=== PATIENT | male | born 1950 | race Caucasian/White ===

== ENCOUNTER 2018-06-17 21:48 | Emergency (ER) | payer OTHER ==
[~2018-06-17] VITALS: Ht 165.1 cm; Wt 81.6 kg
[2018-06-17 22:11] VITALS: BP 184/101
--- NOTE | 2018-06-17 22:15 | NUR ---
TO BED # 11 AMBULATORY, REPORT GIVEN TO PHIL KNAPP
--- NOTE | 2018-06-17 22:20 | NUR ---
PT BIB FAMILY C/O HIGH BLOOD STARTED THIS MORNING. PT DENIES N/V/D; SKIN IS INTACT, FLUSHED/WARM/DRY; AAOX4, PERRL, WITH EVEN AND STEADY GAIT; LUNGS CLEAR BL, BREATHING UNLABORED; HR EVEN AND REGULAR, BL PERIPHERAL PULSES PRESENT; BS ACTIVE X4, NO TENDERNESS TO PALPATION. PT DENIES ANY FEVER, CP, SOB, OR COUGH AT THIS TIME; PT STATES 0/10 PAIN AT THIS TIME; VSS; PATIENT POSITIONED FOR COMFORT; HOB ELEVATED; BEDRAILS UP X2; BED DOWN.
--- NOTE | 2018-06-17 23:00 | NUR ---
IV 18GA LT A/C DONE. BLOOD SENT TO LAB.
--- NOTE | 2018-06-17 23:14 | NUR ---
Dr. Joyce evaluating patient at bedside.
[2018-06-17] MEDS ORDERED: cloNIDine 0.1 MG TAB PO ONE (23:55)
[2018-06-17] MEDS ORDERED: LISI-420 PO (23:59)
[2018-06-17] MEDS ORDERED: GLIP10TE PO (23:59)
[2018-06-17] MEDS ORDERED: SIMV40TA1 PO (23:59)
[2018-06-17] MEDS ORDERED: ATEN50TA8 PO (23:59)
[2018-06-17] MEDS ORDERED: NAPR-54 PO (23:59)
[2018-06-18] MEDS ORDERED: cloNIDine 0.1 MG TAB PO ONE (00:55)
--- NOTE | 2018-06-18 01:50 | NUR ---
Patient discharged with v/s stable. Written and verbal after care instructions given and explained. Patient alert, oriented and verbalized understanding of instructions. Ambulatory with steady gait. All questions addressed prior to discharge. ID band removed. Patient advised to follow up with PMD. Opportunity to ask questions provided and answered.
[2018-06-18 01:55] VITALS: BP 154/62
== END 2018-06-18 01:50 | disposition home or self-care (01) ==
LOC: MED 21:48
DX: I10 Essential (primary) hypertension (principal); H53.8 Other visual disturbances; E11.9 Type 2 diabetes mellitus without complications; Z79.899 Other long term (current) drug therapy
CPT/HCPCS: 82948; 99283

== ENCOUNTER 2018-08-28 17:52 | Inpatient (IN) | payer OTHER ==
[~2018-08-28] VITALS: Ht 160 cm; Wt 84.8 kg
[~2018-08-28 17:52] MED LIST: ATEN50TA8 PO; GLIP10TE PO; LISI-420 PO; NAPR-54 PO; SIMV40TA1 PO
[2018-08-28 17:57] VITALS: BP 170/90
[2018-08-28] MEDS ORDERED: ASPIRIN 325 MG TAB PO ONE (18:35)
[2018-08-28 18:42] LABS: BASOPHILS % (AUTO) 0.4 % (0.0-2.0); EOSINOPHILS % (AUTO) 0.3 % (0.0-4.0); HEMATOCRIT 50.9 % (36-52); HEMOGLOBIN 16.7 g/dL (12.0-18.0); LYMPHOCYTES # (AUTO) 1.7 K/uL (2.0-11.5); MEAN CORPUSCULAR HEMOGLOBIN 29 pg (27-31); MEAN CORPUSCULAR HGB CONC 33 g/dL (33-37); MEAN CORPUSCULAR VOLUME 87.3 fL (80-94); MONOCYTES # (AUTO) 0.8 K/uL (0.8-1.0); NEUTROPHILS # (AUTO) 8.2 K/uL (1.8-7.7); NEUTROPHILS % (AUTO) 76.3 % (42.2-75.2); PLATELET COUNT (AUTO) 247 K/uL (140-450); RED BLOOD CELL COUNT(AUTO) 5.83 MIL/uL (4.20-6.10); RED CELL DISTRIBUTION WIDTH 17.5 % (11.6-13.7); WHITE BLOOD COUNT (AUTO) 10.8 K/uL (4.8-10.8)
[2018-08-28 18:45] LABS: APPEARANCE,URINE CLEAR (CLEAR); COLOR,URINE YELLOW (YELLOW); UGLUCOSE NEGATIVE (NEGATIVE)
[2018-08-28 18:46] LABS: BILIRUBIN,URINE NEGATIVE (NEGATIVE); BLOOD, URINE NEGATIVE (NEGATIVE); LEUKOCYTE ESTERASE ,URINE NEGATIVE (NEGATIVE); NITRITE, URINE NEGATIVE (NEGATIVE)
[2018-08-28 18:52] LABS: ANION GAP 15.9 (8-16); CARBON DIOXIDE 27.5 mmol/L (21-32); CREATININE 1.6 mg/dL (0.7-1.3); POTASSIUM 4.4 mmol/L (3.5-5.1)
[2018-08-28 18:58] LABS: ALBUMIN 4.2 g/dL (3.4-5.0); TOTAL BILIRUBIN 0.4 mg/dL (0.0-1.0)
[2018-08-28] MEDS ORDERED: NITROGLYCERIN 2% 1 GM PKT TP ONE (20:20)
[2018-08-28] MEDS ORDERED: NACL 0.9% 500 ML IV ONE (20:20)
[2018-08-28] MEDS ORDERED: METO50TA21 PO (21:08)
[2018-08-28] MEDS ORDERED: CLON0.1T42 PO (21:08)
[2018-08-28 22:05] VITALS: BP 168/87
[2018-08-29 00:16] VITALS: BP 167/84
[2018-08-29] MEDS ORDERED: ALUMINUM HYD/MAG/SIMETHICONE 30 ML UDC PO PRN (01:05)
[2018-08-29] MEDS ORDERED: ACETAMINOPHEN 325 MG TAB PO PRN (01:05)
[2018-08-29] MEDS ORDERED: NITROGLYCERIN 0.4 MG TAB SL PRN (01:05)
[2018-08-29 04:30] VITALS: BP 165/87
[2018-08-29 05:20] VITALS: BP 176/86
[2018-08-29] MEDS ORDERED: DEXTROSE 50% 50 ML SYR IVP PRN (06:25)
[2018-08-29] MEDS ORDERED: hydrALAZINE 20 MG/ML VIAL IVP PRN (06:25)
[2018-08-29] MEDS ORDERED: INSULIN LISPRO SLIDING SCALE 100 UNITS/ML VIAL SUBQ PRN (06:25)
[2018-08-29] MEDS ORDERED: PANTOPRAZOLE 40 MG TABEC PO SCH (06:30)
[2018-08-29] MEDS: BLOOD GLUCOSE MONITORING 1 DEV DEV FS SCH ×2 (06:44→12:05)
[2018-08-29 06:59] LABS: BASOPHILS % (AUTO) 0.4 % (0.0-2.0); EOSINOPHILS # (AUTO) 0.1 K/uL (0-0.4); EOSINOPHILS % (AUTO) 0.7 % (0.0-4.0); HEMATOCRIT 49.6 % (36-52); HEMOGLOBIN 16.6 g/dL (12.0-18.0); LYMPHOCYTES # (AUTO) 2.5 K/uL (2.0-11.5); LYMPHOCYTES % (AUTO) 30.6 % (20.5-51.1); MEAN CORPUSCULAR HEMOGLOBIN 29 pg (27-31); MEAN CORPUSCULAR HGB CONC 33 g/dL (33-37); MEAN CORPUSCULAR VOLUME 86.5 fL (80-94); MONOCYTES # (AUTO) 0.7 K/uL (0.8-1.0); MONOCYTES % (AUTO) 8.8 % (1.7-9.3); NEUTROPHILS # (AUTO) 4.8 K/uL (1.8-7.7); NEUTROPHILS % (AUTO) 59.5 % (42.2-75.2); PLATELET COUNT (AUTO) 231 K/uL (140-450); RED BLOOD CELL COUNT(AUTO) 5.73 MIL/uL (4.20-6.10); RED CELL DISTRIBUTION WIDTH 17.9 % (11.6-13.7); WHITE BLOOD COUNT (AUTO) 8.1 K/uL (4.8-10.8)
[2018-08-29 07:09] LABS: ANION GAP 12.1 (8-16); CARBON DIOXIDE 29.6 mmol/L (21-32); CREATININE 1.3 mg/dL (0.7-1.3); POTASSIUM 3.7 mmol/L (3.5-5.1); TOTAL BILIRUBIN 0.5 mg/dL (0.0-1.0)
[2018-08-29] MEDS ORDERED: BLOOD GLUCOSE MONITORING 1 DEV DEV FS SCH (07:30)
[2018-08-29 08:00] VITALS: BP 174/85
[2018-08-29] MEDS ORDERED: METOPROLOL 50 MG TAB PO SCH (09:00)
[2018-08-29] MEDS ORDERED: cloNIDine 0.1 MG TAB PO SCH (09:00)
[2018-08-29] MEDS ORDERED: ASPIRIN 81 MG TAB.CHEW PO SCH (09:00)
[2018-08-29] MEDS ORDERED: LISINOPRIL 20 MG TAB PO SCH (09:00)
[2018-08-29 12:00] VITALS: BP 117/75
[2018-08-30] MEDS ORDERED: ENOXAPARIN 30 MG/0.3 ML SYR SUBQ SCH (09:00)
== END 2018-08-29 15:55 | disposition home or self-care (01) | DRG 74 ==
LOC: MED 17:52 → MTU 21:38
PROVIDERS: ADMIT Hospitalist; ATTEND Hospitalist
DX: M54.12 Radiculopathy, cervical region (principal); R07.89 Other chest pain; E11.9 Type 2 diabetes mellitus without complications; E78.5 Hyperlipidemia, unspecified; I10 Essential (primary) hypertension; M19.90 Unspecified osteoarthritis, unspecified site
CPT/HCPCS: 36415; 71045; 80053; 81003; 82948; 83880; 84484; 85025; 85610; 85730; 87081; 93005; 96360; J0360; J1815; Q0092

== ENCOUNTER 2019-05-28 19:32 | Emergency (ER) | payer OTHER ==
[~2019-05-28] VITALS: Ht 165.1 cm; Wt 81.6 kg
[~2019-05-28 19:32] MED LIST changes: +CLON0.1T42 PO; +METO50TA21 PO
--- NOTE | 2019-05-28 19:40 | NUR ---
TO BED # 09 AMBULATORY
[2019-05-28 19:41] VITALS: BP 204/98
--- NOTE | 2019-05-28 20:21 | NUR ---
PT TAKEN TO RADIOLOGY BY TECHNCIAN.
--- NOTE | 2019-05-28 20:25 | NUR ---
PT BIB C/O HIGH BLOOD PRESSURE AND HIGH BLOOD SUGAR. PT STATES TAKING METOPROLOL AND CLONIDINE 1 HR AGO PRIOR TO COMING TO ED. NO C/O CP/N/V/D, NO BLURRY VISION NOTED. AAOX4, RR EVEN UNLABORED, IN NO DISTRESS AT THIS TIME, ED MD DR. ESTRELLA MADE AWARE, WILL CONTINUE TO MONITOR CLOSELY, BE IN LOWEST POSITION.
[2019-05-28 21:08] LABS: BASOPHILS # (AUTO) 0.1 K/uL (0.00-0.22); BASOPHILS % (AUTO) 0.7 % (0.0-2.0); EOSINOPHILS # (AUTO) 0.1 K/uL (0-0.4); EOSINOPHILS % (AUTO) 0.9 % (0.0-4.0); HEMATOCRIT 47.6 % (36-52); HEMOGLOBIN 15.5 g/dL (12.0-18.0); LYMPHOCYTES # (AUTO) 1.5 K/uL (2.0-11.5); LYMPHOCYTES % (AUTO) 17.6 % (20.5-51.1); MEAN CORPUSCULAR HEMOGLOBIN 28 pg (27-31); MEAN CORPUSCULAR HGB CONC 33 g/dL (33-37); MEAN CORPUSCULAR VOLUME 86.8 fL (80-94); MONOCYTES # (AUTO) 0.7 K/uL (0.8-1.0); MONOCYTES % (AUTO) 8.7 % (1.7-9.3); NEUTROPHILS # (AUTO) 6.1 K/uL (1.8-7.7); NEUTROPHILS % (AUTO) 72.1 % (42.2-75.2); PLATELET COUNT (AUTO) 258 K/uL (140-450); RED BLOOD CELL COUNT(AUTO) 5.48 MIL/uL (4.20-6.10); RED CELL DISTRIBUTION WIDTH 17.3 % (11.6-13.7); WHITE BLOOD COUNT (AUTO) 8.5 K/uL (4.8-10.8)
[2019-05-28 21:19] LABS: ANION GAP 14.7 (8-16); CARBON DIOXIDE 24.9 mmol/L (21-32); CREATININE 1.4 mg/dL (0.7-1.3); POTASSIUM 4.6 mmol/L (3.5-5.1)
--- NOTE | 2019-05-28 21:42 | NUR ---
PT LAYING IN BED, RR EVEN AND UNLABORED. DENIES CP, HEADACHE, DIZZINESS OR OTHER S/S. VS NOTED, BP 193/89, HR 55. DR ESTRELLA MADE AWARE. ALL NEEDS MET.
[2019-05-28] MEDS ORDERED: NIFEdipine 30 MG TABER PO ONE (22:10)
--- NOTE | 2019-05-28 23:04 | NUR ---
PT LAYING IN BED, RR EVEN AND UNLABORED. DENIES CP, OR DIZZINESS. REPORTS VERY MILD HEADACHE THAT HAS BEEN ASSOCIATED WITH PAST ELEVATED BP. VS NOTED, BP 192/90, HR 58. DR ESTRELLA MADE AWARE. ALL NEEDS MET.
[2019-05-28 23:23] VITALS: BP 192/90
--- NOTE | 2019-05-28 23:24 | NUR ---
Patient discharged with v/s stable. Written and verbal after care instructions given and explained. Patient verbalized understanding. Ambulatory with steady gait. All questions addressed prior to discharge. Advised to follow up with PMD.
== END 2019-05-28 23:24 | disposition home or self-care (01) ==
LOC: MED 19:32
DX: I10 Essential (primary) hypertension (principal); E11.65 Type 2 diabetes mellitus with hyperglycemia; Z79.84 Long term (current) use of oral hypoglycemic drugs; Z79.899 Other long term (current) drug therapy
CPT/HCPCS: 36415; 71046; 80048; 82948; 84484; 85025; 93005; 99284

== ENCOUNTER 2019-12-25 21:23 | Emergency (ER) | payer OTHER ==
[~2019-12-25] VITALS: Ht 165.1 cm; Wt 83.9 kg
[2019-12-25 21:25] VITALS: BP 177/90
--- NOTE | 2019-12-25 21:28 | NUR ---
TO LOBBY A/W BED AMBULATORY
--- NOTE | 2019-12-25 22:45 | NUR ---
PT AMBULATED TO BED 11 WITH STEADY GAIT.
--- NOTE | 2019-12-25 22:50 | NUR ---
PT BIB SELF FOR C/O "FEELING WERID," S/P INGESTING [employer] [place] PO FOR THE FIRST. TIME. PT STATES,"I COULDN'T FEEL MY FACE AND MY WHOLE BODY FELT NUMB, I GOT NERVOUS I HAD A BAD RESCTION TO IT." PT AAO X4. RESPIRATIONS ARE EVEN AND UNLABORED. PT DENIES N/V/D. ABD IS ROUND, SOFT, AND NON TENDER. PT DENIES COUGH. AFEBRILE. PT ABLE TO AMBULATE WITH STEADY GAIT. AT BEDSIDE. PT ON MONITOR. BED LOCKED AND IN LOWEST POSITION. MEDHX: DM TYPE II, HTN, RA ALLERGIES: NKA
[2019-12-25 23:13] VITALS: BP 152/78
== END 2019-12-25 23:13 | disposition home or self-care (01) ==
LOC: MED 21:23
DX: F12.929 Cannabis use, unspecified with intoxication, unspecified (principal); M54.9 Dorsalgia, unspecified; E11.9 Type 2 diabetes mellitus without complications; I10 Essential (primary) hypertension; Z79.84 Long term (current) use of oral hypoglycemic drugs; Z79.899 Other long term (current) drug therapy
CPT/HCPCS: 99281

== ENCOUNTER 2023-12-26 10:55 | Emergency (ER) | payer OTHER ==
[~2023-12-26] VITALS: Ht 172.7 cm; Wt 74.8 kg
[~2023-12-26 10:55] MED LIST changes: +CLON0.1T16 PO; -CLON0.1T42 PO; -LISI-420 PO; +LISI-487 PO; +SIMV-373 PO; -SIMV40TA1 PO
[2023-12-26 11:19] VITALS: BP 120/78; PULSE 92; RESP 20; TEMP 98.1; O2SAT 98
[2023-12-26 13:21] LABS: FLU A ANTIGEN negative (NEGATIVE); FLU B ANTIGEN NEGATIVE (NEGATIVE)
[2023-12-26 13:53] LABS: BASOPHILS # (AUTO) 0.1 K/uL (0.00-0.22); BASOPHILS % (AUTO) 0.9 % (0.0-2.0); EOSINOPHILS # (AUTO) 0.3 K/uL (0-0.4); EOSINOPHILS % (AUTO) 2.7 % (0.0-4.0); HEMATOCRIT 40.9 % (36-52); HEMOGLOBIN 12.6 g/dL (12.0-18.0); LYMPHOCYTES # (AUTO) 1.1 K/uL (2.0-11.5); LYMPHOCYTES % (AUTO) 9.8 % (20.5-51.1); MEAN CORPUSCULAR HEMOGLOBIN 21 pg (27-31); MEAN CORPUSCULAR HGB CONC 31 g/dL (33-37); MEAN CORPUSCULAR VOLUME 68.3 fL (80-94); MONOCYTES # (AUTO) 1.1 K/uL (0.8-1.0); NEUTROPHILS # (AUTO) 9.1 K/uL (1.8-7.7); NEUTROPHILS % (AUTO) 77.6 % (42.2-75.2); PLATELET COUNT (AUTO) 517 K/uL (140-450); RED BLOOD CELL COUNT(AUTO) 5.99 MIL/uL (4.20-6.10); RED CELL DISTRIBUTION WIDTH 20.8 % (11.6-13.7); WHITE BLOOD COUNT (AUTO) 11.8 K/uL (4.8-10.8)
[2023-12-26 14:00] LABS: ANION GAP 12.7 (8-16); CALCIUM 8.6 mg/dL (8.5-10.1); CARBON DIOXIDE 26.9 mmol/L (21-32); CHLORIDE 102 mmol/L (98-107); CREATININE 0.9 mg/dL (0.6-1.3); GLUCOSE 152 mg/dL (74-106); POTASSIUM 3.6 mmol/L (3.5-5.1); SODIUM SERUM 138 mmol/L (136-145); UREA NITROGEN, BLOOD 8 mg/dL (7-18)
[2023-12-26 14:10] LABS: ALANINE AMINOTRANSFERASE 9 U/L (12-78); ALBUMIN 2.8 g/dL (3.4-5.0); ALKALINE PHOSPHATASE 95 U/L (50-136); ASPARTATE AMINOTRANSFERASE 20 U/L (15-37); BILIRUBIN,DIRECT 0.1 mg/dL (0.0-0.3); TOTAL BILIRUBIN 0.3 mg/dL (0.0-1.0)
[2023-12-26 14:38] VITALS: O2SAT 99
[2023-12-26] MEDS ORDERED: METH4TAB1 PO (15:12)
[2023-12-26] MEDS ORDERED: ACET-8905 PO (15:12)
[2023-12-26] MEDS ORDERED: PSEU-250 PO (15:12)
[2023-12-26 16:26] VITALS: BP 132/8; PULSE 71; RESP 18; TEMP 98
== END 2023-12-26 16:05 | disposition home or self-care (01) ==
LOC: MED 10:55
DX: U07.1 COVID-19 (principal); M10.072 Idiopathic gout, left ankle and foot; E11.9 Type 2 diabetes mellitus without complications; I10 Essential (primary) hypertension; E78.5 Hyperlipidemia, unspecified; I25.10 Atherosclerotic heart disease of native coronary artery without angina pectoris; Z95.1 Presence of aortocoronary bypass graft
CPT/HCPCS: 36415; 71045; 73630; 80048; 80076; 83880; 84484; 85025; 93005; 99285

== ENCOUNTER 2024-03-05 15:52 | Emergency (ER) | payer OTHER ==
[~2024-03-05] VITALS: Ht 165.1 cm; Wt 74.8 kg
[~2024-03-05 15:52] MED LIST changes: +ACET-8905 PO; +METH4TAB1 PO; +NAPR-337 PO; -NAPR-54 PO; +PSEU-250 PO
[2024-03-05 15:56] VITALS: BP 151/70; PULSE 68; RESP 16; TEMP 97.7; O2SAT 99
[2024-03-05 16:38] LABS: BASOPHILS # (AUTO) 0.2 K/uL (0.00-0.22); EOSINOPHILS # (AUTO) 0.7 K/uL (0-0.4); EOSINOPHILS % (AUTO) 3.7 % (0.0-4.0); HEMATOCRIT 38.9 % (36-52); HEMOGLOBIN 11.8 g/dL (12.0-18.0); LYMPHOCYTES # (AUTO) 2.1 K/uL (2.0-11.5); LYMPHOCYTES % (AUTO) 11.8 % (20.5-51.1); MEAN CORPUSCULAR HEMOGLOBIN 20 pg (27-31); MEAN CORPUSCULAR HGB CONC 30 g/dL (33-37); MEAN CORPUSCULAR VOLUME 66.8 fL (80-94); MONOCYTES # (AUTO) 1.1 K/uL (0.8-1.0); MONOCYTES % (AUTO) 6.2 % (1.7-9.3); NEUTROPHILS # (AUTO) 13.7 K/uL (1.8-7.7); NEUTROPHILS % (AUTO) 77.3 % (42.2-75.2); PLATELET COUNT (AUTO) 671 K/uL (140-450); RED BLOOD CELL COUNT(AUTO) 5.82 MIL/uL (4.20-6.10); RED CELL DISTRIBUTION WIDTH 17.7 % (11.6-13.7); WHITE BLOOD COUNT (AUTO) 17.8 K/uL (4.8-10.8)
[2024-03-05 16:55] LABS: CALCIUM 8.6 mg/dL (8.5-10.1); CARBON DIOXIDE 25.1 mmol/L (21-32); CHLORIDE 105 mmol/L (98-107); CREATININE 1.1 mg/dL (0.6-1.3); GLUCOSE 178 mg/dL (74-106); POTASSIUM 4.1 mmol/L (3.5-5.1); SODIUM SERUM 138 mmol/L (136-145); UREA NITROGEN, BLOOD 13 mg/dL (7-18)
[2024-03-05 19:03] VITALS: BP 133/68; PULSE 63; RESP 15; O2SAT 99
== END 2024-03-05 19:05 | disposition home or self-care (01) ==
LOC: MED 15:52
DX: R07.9 Chest pain, unspecified (principal); M25.512 Pain in left shoulder; E11.9 Type 2 diabetes mellitus without complications; I11.9 Hypertensive heart disease without heart failure; Z79.4 Long term (current) use of insulin; Z79.899 Other long term (current) drug therapy
CPT/HCPCS: 36415; 71045; 80048; 83880; 84484; 85025; 99284; Q0092

== ENCOUNTER 2024-03-25 21:58 | Emergency (ER) | payer OTHER ==
[~2024-03-25] VITALS: Ht 165.1 cm; Wt 79.4 kg
[~2024-03-25 21:58] MED LIST changes: -LISI-487 PO; +LISI-953 PO
[2024-03-25 22:01] VITALS: BP 171/75; PULSE 62; RESP 16; TEMP 96.9; O2SAT 100
[2024-03-26] MEDS: NACL 0.9% 1,000 ML IV ONE (01:01)
[2024-03-26 01:18] LABS: HEMATOCRIT 44.1 % (36-52); HEMOGLOBIN 13.2 g/dL (12.0-18.0); MEAN CORPUSCULAR HEMOGLOBIN 20 pg (27-31); MEAN CORPUSCULAR HGB CONC 30 g/dL (33-37); MEAN CORPUSCULAR VOLUME 65.2 fL (80-94); PLATELET COUNT (AUTO) 714 K/uL (140-450); RED BLOOD CELL COUNT(AUTO) 6.76 MIL/uL (4.20-6.10); RED CELL DISTRIBUTION WIDTH 17.4 % (11.6-13.7)
[2024-03-26 01:28] LABS: CALCIUM 9.7 mg/dL (8.5-10.1); CARBON DIOXIDE 26.9 mmol/L (21-32); CHLORIDE 97 mmol/L (98-107); CREATININE 1.1 mg/dL (0.6-1.3); GLUCOSE 216 mg/dL (74-106); POTASSIUM 3.9 mmol/L (3.5-5.1); SODIUM SERUM 131 mmol/L (136-145); UREA NITROGEN, BLOOD 24 mg/dL (7-18)
[2024-03-26 01:38] LABS: WHITE BLOOD COUNT (AUTO) 31.4 K/uL (4.8-10.8)
[2024-03-26 01:39] LABS: LYMPHOCYTES % (MANUAL) 8 % (20-46); MONOCYTES % (MANUAL) 2 % (5-12)
[2024-03-26 01:40] LABS: PLATELET ESTIMATE INCREASED
[2024-03-26 02:47] LABS: APPEARANCE,URINE CLEAR (CLEAR); BILIRUBIN,URINE NEGATIVE (NEGATIVE); BLOOD, URINE TRACE-I (NEGATIVE); COLOR,URINE YELLOW (YELLOW); LEUKOCYTE ESTERASE ,URINE NEGATIVE (NEGATIVE); NITRITE, URINE NEGATIVE (NEGATIVE); PROTEIN,URINE TRACE (NEGATIVE); UGLUCOSE NEGATIVE (NEGATIVE); UROBILINOGEN,URINE 0.2 EU/dL (0.2 - 1)
[2024-03-26 03:03] LABS: BACTERIA,URINE OCCASSIONAL /HPF (None Seen); RBC,URINE 0-5 /HPF (0-5); SQUAMOUS EPITHELIAL CELL,UR 0-3 (FEW) /LPF (0-3 (FEW)); WBC,URINE NONE SEEN /HPF (0-5)
[2024-03-26 04:44] VITALS: BP 156/68; PULSE 55; RESP 20; TEMP 97.8; O2SAT 97
== END 2024-03-26 04:44 | disposition home or self-care (01) ==
LOC: MED 21:58
DX: E11.65 Type 2 diabetes mellitus with hyperglycemia (principal); D72.829 Elevated white blood cell count, unspecified; I11.9 Hypertensive heart disease without heart failure; Z79.899 Other long term (current) drug therapy
CPT/HCPCS: 36415; 80048; 81001; 82948; 85025; 96360; 99283; J7030

== ENCOUNTER 2024-07-13 11:21 | Emergency (ER) | payer OTHER ==
[~2024-07-13] VITALS: Ht 160 cm; Wt 74.9 kg
[~2024-07-13 11:21] MED LIST changes: -GLIP10TE PO; +GLIP10TE1 PO
[2024-07-13 11:49] VITALS: BP 161/67; PULSE 60; RESP 17; TEMP 97.8; O2SAT 99
[2024-07-13 12:11] LABS: APPEARANCE,URINE CLEAR (CLEAR); BILIRUBIN,URINE NEGATIVE (NEGATIVE); BLOOD, URINE TRACE-L (NEGATIVE); LEUKOCYTE ESTERASE ,URINE NEGATIVE (NEGATIVE); NITRITE, URINE NEGATIVE (NEGATIVE); PROTEIN,URINE 2+ (NEGATIVE); UGLUCOSE NEGATIVE (NEGATIVE); UROBILINOGEN,URINE 0.2 EU/dL (0.2 - 1)
[2024-07-13 12:12] LABS: COLOR,URINE ORANGE (YELLOW)
[2024-07-13 12:23] LABS: BACTERIA,URINE FEW /HPF (None Seen); RBC,URINE 0-5 /HPF (0-5); SQUAMOUS EPITHELIAL CELL,UR 0-3 (FEW) /LPF (0-3 (FEW))
[2024-07-13 12:30] LABS: BASOPHILS # (AUTO) 0.3 K/uL (0.00-0.22); BASOPHILS % (AUTO) 1.4 % (0.0-2.0); EOSINOPHILS # (AUTO) 0.6 K/uL (0-0.4); EOSINOPHILS % (AUTO) 2.9 % (0.0-4.0); HEMATOCRIT 48.8 % (36-52); HEMOGLOBIN 14.6 g/dL (12.0-18.0); LYMPHOCYTES # (AUTO) 2.1 K/uL (2.0-11.5); MEAN CORPUSCULAR HEMOGLOBIN 19 pg (27-31); MEAN CORPUSCULAR HGB CONC 30 g/dL (33-37); MEAN CORPUSCULAR VOLUME 63.9 fL (80-94); MONOCYTES # (AUTO) 1.5 K/uL (0.8-1.0); MONOCYTES % (AUTO) 6.9 % (1.7-9.3); NEUTROPHILS # (AUTO) 16.6 K/uL (1.8-7.7); NEUTROPHILS % (AUTO) 78.8 % (42.2-75.2); RED BLOOD CELL COUNT(AUTO) 7.64 MIL/uL (4.20-6.10); RED CELL DISTRIBUTION WIDTH 19.7 % (11.6-13.7)
[2024-07-13 12:46] LABS: ALANINE AMINOTRANSFERASE 30 U/L (12-78); ALBUMIN 3.9 g/dL (3.4-5.0); ALKALINE PHOSPHATASE 106 U/L (50-136); ANION GAP 13.7 (8-16); ASPARTATE AMINOTRANSFERASE 28 U/L (15-37); CALCIUM 9.3 mg/dL (8.5-10.1); CARBON DIOXIDE 28.8 mmol/L (21-32); CHLORIDE 98 mmol/L (98-107); CREATININE 1.1 mg/dL (0.6-1.3); GLUCOSE 172 mg/dL (74-106); POTASSIUM 3.5 mmol/L (3.5-5.1); SODIUM SERUM 137 mmol/L (136-145); TOTAL BILIRUBIN 0.7 mg/dL (0.0-1.0); TOTAL PROTEIN, SERUM 8.8 g/dL (6.4-8.2); UREA NITROGEN, BLOOD 14 mg/dL (7-18)
[2024-07-13 12:51] LABS: PLATELET COUNT (AUTO) 995 K/uL (140-450)
[2024-07-13] MEDS ORDERED: cefTRIAXone 1,000 MG VIAL ONE (13:07)
[2024-07-13] MEDS: NACL 0.9% 2,000 ML IV ONE (13:10)
[2024-07-13] MEDS: MECLIZINE 25 MG TAB PO ONE (13:10)
[2024-07-13] MEDS: KETOROLAC 30 MG/ML VIAL IVP ONE (13:11)
[2024-07-13] MEDS: NACL 0.9% 1,000 ML IV ONE (14:32)
[2024-07-13 16:44] LABS: BASOPHILS # (AUTO) 0.1 K/uL (0.00-0.22); BASOPHILS % (AUTO) 0.6 % (0.0-2.0); EOSINOPHILS # (AUTO) 0.6 K/uL (0-0.4); EOSINOPHILS % (AUTO) 3.3 % (0.0-4.0); HEMATOCRIT 48.3 % (36-52); HEMOGLOBIN 14.4 g/dL (12.0-18.0); LYMPHOCYTES # (AUTO) 1.9 K/uL (2.0-11.5); MEAN CORPUSCULAR HEMOGLOBIN 19 pg (27-31); MEAN CORPUSCULAR HGB CONC 30 g/dL (33-37); MEAN CORPUSCULAR VOLUME 63.9 fL (80-94); MONOCYTES # (AUTO) 1.1 K/uL (0.8-1.0); NEUTROPHILS # (AUTO) 15.3 K/uL (1.8-7.7); NEUTROPHILS % (AUTO) 80.1 % (42.2-75.2); PLATELET COUNT (AUTO) 926 K/uL (140-450); RED BLOOD CELL COUNT(AUTO) 7.57 MIL/uL (4.20-6.10); RED CELL DISTRIBUTION WIDTH 19.7 % (11.6-13.7); WHITE BLOOD COUNT (AUTO) 19.1 K/uL (4.8-10.8)
[2024-07-13 16:49] LABS: LACTIC ACID 1.5 mmol/L (0.4-2.0)
[2024-07-13] MEDS ORDERED: MECL-303 PO (17:33)
[2024-07-13 17:49] VITALS: BP 149/71; PULSE 64; RESP 16; TEMP 98.1; O2SAT 98
== END 2024-07-13 17:49 | disposition home or self-care (01) ==
LOC: MED 11:21
DX: E86.0 Dehydration (principal); R42 Dizziness and giddiness; D72.829 Elevated white blood cell count, unspecified; D75.839 Thrombocytosis, unspecified; E11.9 Type 2 diabetes mellitus without complications; I10 Essential (primary) hypertension; Z79.899 Other long term (current) drug therapy
CPT/HCPCS: 36415; 70360; 70450; 71045; 80053; 81001; 83605; 84484; 85025; 87040; 87086; 93005; 96365; 96375; 99285; J0696; J1885; J7030; J8597